=== PATIENT | female | born 1995 | race Caucasian/White ===

== ENCOUNTER 2018-02-17 19:53 | Inpatient (IN) ==
[2018-02-17] MEDS ORDERED: Ondansetron 4 MG/2 ML VIAL IVP PRN (20:40)
[2018-02-17] MEDS ORDERED: Famotidine 20 MG/2 ML VIAL IVP PRN (20:40)
[2018-02-17] MEDS ORDERED: Metoclopramide 10 MG/2 ML VIAL IVP PRN (20:40)
[2018-02-17] MEDS ORDERED: *HR* Nalbuphine 10 MG/ML AMPUL IVP PRN (20:40)
[2018-02-17] MEDS ORDERED: Naloxone 0.4 MG/ML INJ IVP PRN (20:40)
[2018-02-17] MEDS ORDERED: Ringers Solution, Lactated 1,000 ML IVC SCH (20:45)
[2018-02-17 21:02] LABS: Basophils % 0.3 %; Eosinophils # 0.1 K/mcL (0.0-0.6); Eosinophils % 0.9 %; Hematocrit 33.1 % (35.3-44.9); Hemoglobin 11.1 g/dL (11.5-15.4); Immature Granulocytes % 0.5 % (0-4); Lymphocytes # 1.8 K/mcL (0.6-4.6); Lymphocytes % 13.3 %; Mean Corpuscular HGB Conc 33.5 g/dL (31.6-35.5); Mean Corpuscular Hemoglobin 28.1 pg (28.0-33.3); Mean Corpuscular Volume 83.8 fL (83.0-100.0); Mean Platelet Volume 11.6 fL (9.4-12.4); Monocytes # 0.6 K/mcL (0.0-1.3); Monocytes % 4.4 %; Neutrophils # 10.6 K/mcL (1.6-8.9); Platelet Count 163 K/mcL (140-400); Red Blood Count 3.95 M/mcL (3.82-4.97); Red Cell Distribution Width 13.2 % (11.5-14.5); Segmented Neutrophils % 80.6 %
[2018-02-17] MEDS: miSOPROStol 25 MCG TABLET VG PRN (21:13)
[2018-02-17 21:20] LABS: Alanine Aminotransferase 12 Units/L (7-52); Aspartate Amino Transferase 16 Units/L (13-39); BUN/Creatinine Ratio 9 (6-26); Blood Urea Nitrogen 6 mg/dL (6-20); Lactate Dehydrogenase 152 Units/L (140-271); Uric Acid 5.3 mg/dL (2.3-7.6); eGFR For Non-African Americans > 60 (> 60)
[2018-02-17 21:36] LABS: Amphetamine Screen,Urine Negative ng/mL (Cutoff=1000); Barbiturate Screen,Urine Negative ng/mL (Cutoff=200); Benzodiazepines Screen,Urine Negative ng/mL (Cutoff=200); Cannabinoid Screen,Urine Negative ng/mL (Cutoff = 50); Cocaine Screen,Urine Negative ng/mL (Cutoff= 300); Opiate Screen,Urine Negative ng/mL (Cutoff=300); Phencyclidine Screen,Urine Negative ng/mL (Cutoff=25)
--- NOTE | 2018-02-18 02:19 | OB Labor Progress Note ---
Date of Encounter: 02/18/18 Time of Encounter: 02:17 Labor Progress Note - Subjective Subjective: Patient doing well. Patient reports feeling contractions but denies need for pain interventions. Discussed POC with patient. Patient denies any questions or concerns at this time. - Cervix Cervix: FT/thick/HIGH - Heart Tones Heart Tones: 135 bpm moderate variability +15x15 accels no decels noted. Cat. 1 tracing - Buckland Buckland: irregular - Interventions Interventions: SVE - Plan Plan: Continue labor management: Repeat cytotec 25mcg vaginally reevaluate for gudino induction in 4 hours
[2018-02-18] MEDS: miSOPROStol 25 MCG TABLET VG PRN (04:05)
--- NOTE | 2018-02-18 08:01 | OB/GYN History & Physical ---
Date of Encounter: 02/18/18 Time of Encounter: 07:59 History of Present Illness Chief complaint: induction HPI: Ms. Meyer is a 23 year old female 1 who presents today for induction of labor at 40 weeks. This patient has been having difficulty with elevated blood pressures throughout her . She saw maternal- medicine who suggested induction. His blood pressures were mildly elevated 1 admission and they came down nicely. All [facility] labs were normal. She has a due date of February 23. Today she is feeling well. 7 no complaints of any kind. Cervix is 1 thick and high. She has no known drug allergies. Current medications include Zoloft and her vitamins. She is no chronic medical conditions. Surgical history is negative. She has no history of abnormal Pap smears, STDs or pelvic infections. She has no history of abnormal breast findings. Socially she denies tobacco, alcohol, illicit drug use. Family history significant for hypertension and thyroid disease. Past Med Surg Social Fam HX - Past Medical History Medical history: asthma Psychiatric history: anxiety, depression - Past Surgical History Surgical History: non-contributory Additional surgical history: left knee - Social History Smoking Status: Never smoker Smokeless Tobacco Status: No Alcohol use: none Drug use: none - Family History Sister Name: beryl meyer Age: 20 Family Member Ethnicity: Non- Living Status: Still Living Hx Family Cardiac Disorders: No Hx Family Respiratory Disorders: No Hx Family Cancer: No Hx Family GI Disorders: No Hx Family Genitourinary Disorders: No Hx Family Endocrine Disorder: No Hx Family Musculoskeletal Disorders: No Hx Family Neuromuscular Disorders: No Hx Family Neurologic Disorders: Yes Hx Family HEENT Disorders: No Hx Family Autoimmune Disorders: No Hx Family Reproductive Disorders: No Hx Family Psychosocial Disorders: No Hx Family Medical Disorders: No Obstetrical History - Pregnancies : 1 Medications and Allergies Pnv Cmb#21/Iron/Folic Acid [ Complete Caplet] 1 each PO DAILY 02/17/18 [History] Sertraline [Zoloft] 100 mg PO DAILY 02/17/18 [History] Allergy/AdvReac Type Severity Reaction Status Date / Time No Known Allergies Allergy Verified 02/17/18 21:11 Review of System OB All systems PM: reviewed and no additional remarkable complaints except as st ated Exam - Constitutional Constitutional: well developed, well nourished, no acute distress, average body habitus - HEENT HEENT: PERRL - Neck Neck exam: full ROM - Lungs Respiratory exam: CTAB - Cardiovascular Cardiovascular exam: RRR - Abdomen Abdomen: Present: gravid, non tender - Cervix Dilation: 1 Effacement: 0 Station: -3 - Uterus Uterus exam: Present: normal size Results Result Diagrams: 02/17/18 20:43 02/17/18 20:43 Abnormal lab results WBC 13.2 K/mcL (4.3-11.1) H 02/17/18 20:43 Hgb 11.1 g/dL (11.5-15.4) L 02/17/18 20:43 Hct 33.1 % (35.3-44.9) L 02/17/18 20:43 Neutrophils # 10.6 K/mcL (1.6-8.9) H 02/17/18 20:43 All other labs normal. - VTE Reasons for not Prescribing Prophylaxis: Treatment not Indicated - Low risk for VTE
--- NOTE | 2018-02-18 08:29 | Anesthesia Evaluation PreOp ---
Date of Encounter: 02/18/18 Time of Encounter: 08:27 - Past History Planned Operation: YOBANI Cardiac History: HTN ( induced--not taking any anti-hypertensives) Pulmonary History: Denies Any Significant HX OIL INSPECTOR History: Denies Any Significant HX Other Medical History: Denies Any Significant HX Anesthesia History: No Prior Anesthetic Complications : Yes Alcohol Use: none Drug use: none Medications and Allergies Pnv Cmb#21/Iron/Folic Acid [ Complete Caplet] 1 each PO DAILY 02/17/18 [History] Sertraline [Zoloft] 100 mg PO DAILY 02/17/18 [History] Allergy/AdvReac Type Severity Reaction Status Date / Time No Known Allergies Allergy Verified 02/17/18 21:11 - Meds/Allergy Pre-op Review Medications Reviewed: Yes Allergies Reviewed: Yes Beta Blockers on Current Med List: No Anesthesia Results - Labs 02/17/18 20:43 02/17/18 20:43 Anesthesia Exam 136/83, HR 98, RR 16 O2 Sat Height 1.57 m Height 1.57 m Weight 105 kg Weight 105 kg NPO (# of Hours): solids > 8hr Pain Scale: 2 Pain Scale Used: Numeric (1 - 10) - HEENT Pupil (Motor): Pupils equal Mallampati: II Teeth: Normal Oral Opening: Greater than 3 - OIL INSPECTOR LOC: Oriented OIL INSPECTOR Motor: Normal RUE, Normal LUE, Normal RLE, Normal LLE, Normal Face OIL INSPECTOR Sensory: Normal: RUE, LUE, RLE, LLE, Face - Cardiac Rhythm: Regular Murmur: None - Pulmonary Breath Sounds: bilateral Clear Respiratory Effort: Symmetrical Anesthesia Assess/Plan ASA Score: 2 Modified [place] Scale for Level of Consciousness: Cooperative, oriented, and t ranquil Anesthetic Plan: Regional Autologous Blood: No Monitoring Plan: Standard Monitors Recovery Plan: Other
[2018-02-18] MEDS ORDERED: Bupivacaine-MPF 0.25% 10 ML VIAL EP ONE (08:30)
[2018-02-18] MEDS ORDERED: miSOPROStol 25 MCG TABLET VG SCH (08:30)
[2018-02-18] MEDS ORDERED: Epidural Premix (fent/bupiv) 110 ML EP SCH (08:30)
[2018-02-18] MEDS ORDERED: *HR* FentaNYL (PF) 100 MCG/2 ML VIAL EP ONE (08:30)
[2018-02-18] MEDS ORDERED: *HR* FentaNYL (PF) 100 MCG/2 ML VIAL ONE (08:33)
[2018-02-18] MEDS ORDERED: Lidocaine -MPF 1% 5 ML AMPUL ONE ×2 (08:33→08:36)
[2018-02-18] MEDS ORDERED: Bupivacaine-MPF 0.25% 10 ML VIAL ONE (08:36)
--- NOTE | 2018-02-18 13:19 | OB/GYN Progress Note ---
Date of Encounter: 02/18/18 Time of Encounter: 13:17 - Assessment and Plan (1) 39 weeks gestation of Current Visit: Yes Status: Acute (2) induced hypertension Current Visit: Yes Status: Acute Qualifiers: Qualified Code(s): O13.9 - Gestational [-induced] hypertension without significant proteinuria, unspecified trimester Subjective - Subjective Principal diagnosis: Casillas catheter placed Interval history: Barbara was checked. Sterile vaginal exam and -3. heart rate 130s to 140s with accelerations. Contractions became more regular. 60 mL Casillas catheter placed without difficulty today. Patient tolerated procedure well. Discussed epidural. Objective - Vital Signs Vital Signs: Intake and Output 02/17/18 02/18/18 02/18/18 23:59 07:59 15:59 Other: Weight 105 kg - Exam FHR: category 1 Abdomen: Present: normal appearance, soft, gravid Uterus: Present: normal Cervical dilation: 11 Cervix effacement: 50 station: -3 - Labs Labs: Abnormal lab results WBC 13.2 K/mcL (4.3-11.1) H 02/17/18 20:43 Hgb 11.1 g/dL (11.5-15.4) L 02/17/18 20:43 Hct 33.1 % (35.3-44.9) L 02/17/18 20:43 Neutrophils # 10.6 K/mcL (1.6-8.9) H 02/17/18 20:43
--- NOTE | 2018-02-18 17:25 | Anesthesia Procedures ---
Date of Encounter: 02/18/18 Time of Encounter: 16:47 Procedures: Anesthesia - Epidural/Spinal Patient ID/Chart reviewed: Yes Patient examined: Yes OB Eval: Gestational age: 40 weeks 2 days OB Eval: : 1 OB Eval: Hx Para: 0 OB Eval: Dilated at (cm): 6 OB Eval: Contractions: Non-stressed pattern Consent Obtained: Yes Supplemental Oxygen: None/Room Air Site Prep: Aseptic Technique, Sterile prep and drape, Povidone-Iodine 1% Patient position: upright Local Anesthetic: Lidocaine 1% Amount of Local Anesthetic used: 3 Touhy Needle Gauge: 18 Touhy Needle Depth (cm): 7 Catheter Depth at Skin (cm): 12 Test Dose (1.5% Lido + Epi): Volume given (mls): 5 (given in 2 equally divided doses over a period of 5 min) Test Dose Result: Positive (upon catheter advancement, clear fluid noted to be backing up into catheter. Concern for intrathecal placement of catheter so test dose administered very cautiously; patient reported complete pain relief from test dose alone so catheter will be managed as intrathecal) Loading Dose: 0.25% Marcaine (mls): 1 Loading Dose: Fentanyl (mcg): 5 Loading Dose Administered: Thru Catheter Infusion Med: 0.125% Bupivacaine w/ 2 mcg/ml Fentanyl Infusion Rate (mls/hr): 0 (1.6mL/hr) Catheter Secured in Place: Tegaderm, Tape Interspace Used: L3-L4 Loss of Resistance (GUILLERMO): Yes Blood: No CSF: Yes (clear fluid backing up through end of catheter) Paresthesia: Yes (transient LLE w/ advancement of catheter) Procedure: successful on 1st attempt; VSS Vitals + FHT's: please see Breonna JOSHUA's electronic records for VS entry
[2018-02-18] MEDS ORDERED: Oxytocin 20 units/ LR 1000 mL 20 UNIT/1,000 ML BAG IVC SCH (18:15)
--- NOTE | 2018-02-18 19:13 | Event Note ---
Date of Encounter: 02/18/18 Time of Encounter: 17:50 Artificial rupture membranes performed. Vaginal exam cervix is 8 cm, 90% effaced and -2 station contractions irregular. We will begin Pitocin. Category 1 tracing.
--- NOTE | 2018-02-18 19:52 | Anesthesia Progress Note ---
Date of Encounter: 02/18/18 Time of Encounter: 19:49 Anesthesia Note - Note Note: Called to patient bedside to evaluate breakthrough labor pain. Patient describes 10/10 pain "all over" with contractions. 2mL 0.125% bupivicaine + 10mcg fentanyl given--no relief. 2mL 0.125% bupi + 10mcg fentanyl given--no relief. 3mL 0.125% bupi + 15mcg fentanyl given--moderate relief; 3mL 0.125% bupi + 15mcg fentanyl given--patient reports significant improvement in pain. Determined that catheter is in epidural space so infusion rate increased to 12mL/hr w/ demand bolus of 4mL q20min PRN. VSS 02/18/18 19:49
--- NOTE | 2018-02-18 21:52 | Anesthesia Progress Note ---
Date of Encounter: 02/18/18 Time of Encounter: 21:49 Anesthesia Note - Note Note: Called to patient's bedside to evaluate breakthrough labor pain; patient describes pain "all over" with contractions; 8mL of 0.125% bupi + 45mcg fentanyl administered via epidural catheter. Patient reports significant improvement in pain score. Infusion increased to 16mL/hr w/ demand bolus of 6mL q30min PRN. VSS 02/18/18 21:49
[2018-02-19] MEDS ORDERED: Chloroprocaine/PF 20 ML VIAL INFILT ONE (07:15)
[2018-02-19] MEDS ORDERED: Water for inj. (sterile) 10 ML IV ONE ×2 (07:16→07:26)
[2018-02-19] MEDS ORDERED: EPHEDrine 50 MG/ML VIAL ONE (07:16)
[2018-02-19] MEDS ORDERED: Ondansetron 4 MG/2 ML VIAL ONE (07:17)
[2018-02-19] MEDS ORDERED: ceFAZolin 2,000 MG in Water for inj. (sterile) 20 ML 20 ML IVP ONE (07:24)
[2018-02-19] MEDS ORDERED: *HR* Morphine Sulfate/PF 10 MG/10 ML AMPUL ONE (07:25)
[2018-02-19] MEDS ORDERED: Azithromycin 1,000 MG in D5% in Water 250 ML IVPB ONE (07:25)
--- NOTE | 2018-02-19 07:28 | OB/GYN Progress Note ---
Date of Encounter: 02/19/18 Time of Encounter: 07:26 - Assessment and Plan (1) 39 weeks gestation of Current Visit: Yes Status: Acute (2) induced hypertension Current Visit: Yes Status: Acute Qualifiers: Qualified Code(s): O13.9 - Gestational [-induced] hypertension without significant proteinuria, unspecified trimester (3) Arrest of dilation, delivered, current hospitalization Current Visit: Yes Status: Acute (4) Failure of descent in labor, delivered, current hospitalization Current Visit: Yes Status: Acute (5) delivery delivered Current Visit: Yes Status: Acute Subjective - Subjective Principal diagnosis: labor Interval history: Pt has made no cervical mover helper past 10 hours. Infant still at -2 station. Patient 9 cm. Patient now feeling pain again and desiring section. Surgery discussed with patient and family. They understand completely. She does wish to proceed. Objective - Exam FHR: category 2 Abdomen: Present: normal appearance Uterus: Present: normal, firm Cervical dilation: 9 Cervix effacement: 80 station: -2 - Labs Labs: Abnormal lab results WBC 13.2 K/mcL (4.3-11.1) H 02/17/18 20:43 Hgb 11.1 g/dL (11.5-15.4) L 02/17/18 20:43 Hct 33.1 % (35.3-44.9) L 02/17/18 20:43 Neutrophils # 10.6 K/mcL (1.6-8.9) H 02/17/18 20:43
[2018-02-19] MEDS ORDERED: *HR* ROPIVACAINE 1% PF 100 MG/10 ML VIAL ONE (07:54)
[2018-02-19] MEDS ORDERED: Acetaminophen IV 1,000 MG/100 ML INFUS..BTL IVPB ONE ×2 (08:04→11:50)
[2018-02-19] MEDS ORDERED: Ondansetron 4 MG/2 ML VIAL IVP ONE (08:04)
[2018-02-19] MEDS ORDERED: *HR* HYDROmorphone (PF) 1 MG/ML SYRINGE IVP PRN (08:04)
[2018-02-19] MEDS ORDERED: *HR* Promethazine 25 MG/ML VIAL IVP PRN (08:04)
[2018-02-19] MEDS ORDERED: Naloxone 0.4 MG/ML INJ IVP PRN (08:04)
[2018-02-19] MEDS ORDERED: Albuterol 2.5 MG/3 ML NEBULIZER IH ONE (08:04)
[2018-02-19] MEDS ORDERED: Ringers Solution, Lactated 1,000 ML IVC SCH (08:15)
--- NOTE | 2018-02-19 08:44 | OB/GYN Procedure Note ---
Section - Date of procedure: 02/19/18 Preop diagnosis: arrest of dilation Post-op diagnosis: same Procedure: primary low transverse Surgeon: Bean Vazquez Blood Loss: 500 Was there an medical records assistant present: Yes Breast Buffer: Rashida Luong Tool Shaper Setup Operator: David Paredes Anesthesia Type: Epidural section complications: none Disposition: Post floor Specimens: Placenta - (s) A Delivery Date: 02/19/18 Delivery Time: 08:14 Presentation: vertex Position: OP Route of delivery: other Gender: Male Viability: Viable Pounds: 8 Ounces: 4 Gram Weight: 3.735 kg at 1 minute: 8 at 5 minutes: 9 Placenta: uterine exploration
--- NOTE | 2018-02-19 08:49 | OB/GYN Procedure Note ---
Section - Date of procedure: 02/19/18 Preop diagnosis: arrest of dilation Post-op diagnosis: same Procedure: primary low transverse Surgeon: Bean Vazquez Blood Loss: 500 Was there an clinical physician assistant present: Yes Aviation Safety Inspector: Rashida Luong Chemical Preparer: David Paredes Anesthesia Type: Epidural section complications: none Specimens: Placenta - (s) Infant A Infant Delivery Date: 02/19/18 Delivery Time: 08:14 Presentation: vertex Position: OP Route of delivery: other Gender: Male Pounds: 8 Ounces: 4 Gram Weight: 3.735 kg at 1 minute: 8 at 5 minutes: 9 Placenta: uterine exploration - Narrative Narrative: Patient had labored all evening. Patient had arrest of dilation and failure to descend. Patient still 9 cm and at a -2 to -3 station after 8 hours. Category 1 tracing noted. The began having more difficulty with patient's blood pressure. Because of this we felt it was necessary to proceed with a serum section. Patient did desire to proceed with this. The procedure was discussed in detail. She understood completely consent was obtained. Patient was then taken back to the operating room with an IV in place. Her epidural was bolused. She was then prepped and draped in the usual sterile fashion. Once we noted adequate analgesia a Pfannenstiel incision was made, and carried sharply through the subcutaneous taste and fatty tissue to until the fascial layers reached. The fascia was then nicked in the midline and incised bilaterally with Cesar scissors. It was then dissected vertically for adequate exposure. Rectus abdominis muscles creatures and separate the midline. The peritoneum was sharply entered. A bladder blade was placed at the inferior margin of the incision. The bladder flap was then developed without difficulty. The bladder blade was placed over the bladder flap, and a low transverse incision was then made in the lower uterine segment. Fluid was noted be clear. The 's head was then delivered without difficulty in occiput posterior presentation. Infant was floating in the uterus. There was no descensus of the baby. The rest of the infant was then delivered easily. cried immediately upon delivery. Cord was clamped cut. The infant was then passed to nursing in attendance. Cord bloods obtained. Placenta was delivered via uterine massage and lavage. The uterus is delivered. Uterine lavage performed of the incision was closed the Vicryl suture in a running locking fashion. One [id number] was placed for final hemostasis. The uterus was then replaced the pelvic cavity pelvic cavity was rinsed thoroughly with sterile water 2. C no bleeding the procedure was terminated sponge needle [place] counts correct 2. The fascia was closed the Vicryl suture in a running nonlocking fashion. The suprafascial region was rinsed thoroughly sterile water 2 all bleeders cauterized. The skin was closed scarlet. Patient tolerated procedure well. Estimated blood loss 500 mL. Findings male infant 8 lbs. 4 oz. with Apgars 8 at 1 minute, 9 at 5 minutes.
[2018-02-19] MEDS ORDERED: miSOPROStol 100 MCG TABLET PO ONE (10:38)
[2018-02-19] MEDS ORDERED: Methylergonovine 0.2 MG/ML AMPUL IM ONE (10:38)
[2018-02-19] MEDS ORDERED: *HR* Morphine 2 MG/ML SYRINGE IVP PRN ×2 (11:08→11:50)
--- NOTE | 2018-02-19 11:08 | Anesthesia Evaluation Post Op ---
Date of Encounter: 02/19/18 Time of Encounter: 11:07 - Lungs Lungs: Clear Ascult./Percussion - Airway Airway: Non-obstructed - Cardiovascular Regular Rate, Baseline Rhythm - Mental Status Mental Status: Alert & Oriented, Answers Appropriately - Pain Pain Scale: 3 Pain Scale used: Numeric (1 - 10) - Nausea Vomiting Nausea Vomiting: Not Present - Hydration Hydration: Ice chips, Casillas catheter - Discharge PostOp Status: Transfer Patient to floor
[2018-02-19] MEDS ORDERED: Sennosides 8.6 MG TABLET PO PRN (11:15)
[2018-02-19] MEDS ORDERED: Metoclopramide 10 MG/2 ML VIAL IVP PRN (11:15)
[2018-02-19] MEDS ORDERED: Ondansetron 4 MG/2 ML VIAL IVP PRN (11:15)
[2018-02-19] MEDS ORDERED: Rho Immune Globulin 1,500 UNIT SYRINGE IM ONE (11:15)
[2018-02-19] MEDS ORDERED: Simethicone 80 MG TAB.CHEW PO PRN (11:15)
[2018-02-19] MEDS ORDERED: CeFAZolin Premix DUPLEX 2,000 MG/50 ML BAG IVPB SCH (16:00)
[2018-02-19] MEDS: Oxytocin 20 units/ LR 1000 mL 20 UNIT/1,000 ML BAG IVC SCH (17:04)
[2018-02-19] MEDS: *HR* OxyCODONE/APAP 5/325 TABLET PO PRN (18:45)
[2018-02-19] MEDS: Ibuprofen 600 MG TABLET PO PRN (21:06)
[2018-02-20] MEDS: Oxytocin 20 units/ LR 1000 mL 20 UNIT/1,000 ML BAG IVC SCH ×2 (01:12→09:34)
[2018-02-20] MEDS: Ibuprofen 600 MG TABLET PO PRN (04:14)
[2018-02-20 07:35] LABS: Basophils % 0.2 %; Eosinophils # 0.2 K/mcL (0.0-0.6); Hematocrit 24.3 % (35.3-44.9); Immature Granulocytes % 0.6 % (0-4); Lymphocytes # 1.4 K/mcL (0.6-4.6); Lymphocytes % 8.7 %; Mean Corpuscular HGB Conc 32.9 g/dL (31.6-35.5); Mean Corpuscular Hemoglobin 28.1 pg (28.0-33.3); Mean Corpuscular Volume 85.3 fL (83.0-100.0); Mean Platelet Volume 10.6 fL (9.4-12.4); Monocytes # 0.9 K/mcL (0.0-1.3); Monocytes % 5.8 %; Platelet Count 123 K/mcL (140-400); Red Blood Count 2.85 M/mcL (3.82-4.97); Red Cell Distribution Width 13.7 % (11.5-14.5); Segmented Neutrophils % 83.7 %
[2018-02-20] MEDS: Prenatal Vit/FA 1 EACH TABLET PO SCH (08:18)
--- NOTE | 2018-02-20 08:58 | OB/GYN Progress Note ---
Date of Encounter: 02/20/18 Time of Encounter: 08:51 - Assessment and Plan (1) S/P section Current Visit: Yes Status: Acute continue routine post-op / care anticipate discharge home tomorrow (2) Anemia complicating the puerperium Current Visit: Yes Status: Acute VSS increase ferrous sulfate to BID Subjective - Subjective Principal diagnosis: Primary C/S Interval history: S/P primary C/S x 1 VSS Pain well controlled lochia light and without clots voiding without difficulty tolerating regular diet; passing flatus breast feeding discharge home tomorrow Patient reports: appetite normal, voiding normally, pain well controlled, ambulating normally [place]: doing well, nursing well Objective - Vital Signs Latest vital signs: Vital Signs Temp Pulse Resp BP Pulse Ox 02/20/18 04:00 97.8 F 93 18 122/81 97 02/20/18 00:15 98.7 F 99 20 117/80 95 02/19/18 19:30 98.3 F 116 14 116/68 98 02/19/18 16:22 98.4 F 101 20 114/70 97 02/19/18 14:00 98.2 F 105 20 104/62 96 02/19/18 13:00 981 F H 139 24 104/67 95 02/19/18 12:00 97.8 F 109 20 115/77 95 02/19/18 11:30 99.0 F 90 16 112/76 97 02/19/18 11:00 98.9 F 100 20 107/22 97 Intake and Output 02/19/18 02/20/18 02/20/18 23:59 07:59 15:59 Intake Total 600 / 600 2000 / 2000 Output Total 1000 / 1000 1100 / 1100 Balance -400 / -400 900 / 900 Intake: IV Fluids 1000 / 1000 Pitocin 20 unit In 1,000 ml @ 1000 / 1000 125 mls/hr IVC .Q8H ELBERT Rx#: [id number] Oral 600 / 600 1000 / 1000 Output: Catheter 1000 / 1000 1100 / 1100 Other: Meal Dinner Percent of Meal Consumed 80% Weight 102.512 kg Patient Weight 02/20/18 23:59 Weight 102.512 kg - Exam Lungs: bilateral: normal Chest: Normal S1, Normal S2 Extremities: Present: normal Abdomen: Present: normal appearance, soft, gravid Incision: Present: normal, dry, intact Uterus: Present: normal, firm Fundal Height: 0 (@u) - Labs Labs: Laboratory Results - last 24 hr 02/19/18 02/20/18 08:52 07:24 WBC 15.6 H RBC 2.85 L Hgb 8.0 L D Hct 24.3 L MCV 85.3 MCH 28.1 MCHC 32.9 RDW 13.7 Plt Count 123 L MPV 10.6 Immature Gran % 0.6 Seg Neutrophils % 83.7 Lymphocytes % 8.7 Monocytes % 5.8 Eosinophils % 1.0 Basophils % 0.2 Neutrophils # 13.0 H Lymphocytes # 1.4 Monocytes # 0.9 Eosinophils # 0.2 Basophils # 0.0 Screen NEGATIVE Baby's Blood Type A RH POSITIVE Mother's Blood Type A RH NEGATIVE Rhogam Indicated YES Rhogam Req for Mother 1
[2018-02-20] MEDS: *HR* OxyCODONE/APAP 5/325 TABLET PO PRN ×3 (10:44→21:45)
[2018-02-21] MEDS: *HR* OxyCODONE/APAP 5/325 TABLET PO PRN ×2 (04:46→09:18)
[2018-02-21] MEDS: Prenatal Vit/FA 1 EACH TABLET PO SCH (08:02)
--- NOTE | 2018-02-21 08:59 | Discharge Summary ---
Date of Encounter: 02/21/18 Time of Encounter: 09:00 - Discharge Diagnosis (1) Anemia complicating the puerperium Priority: Secondary Status: Acute (2) delivery delivered Priority: Primary Status: Acute Comments: Pt meeting post-op milestones. Tachycardia noted to 120's. Hgb stable at 8. Pt reports mild PRINCE this am but denies any other complaints including vision changes, dizziness, chest pain, SOB, leg pain. She reports mild incisional pain that improves with percocet. Plan of care discussed with Dr. Anaya who has reviewed her chart including vital signs and lab results. Per Dr. Anaya tachycardia is most likely due to anemia. Plan for discharge home with precautions. (3) induced hypertension Priority: Secondary Status: Acute Comments: BP stable. Pt reports mild headache earlier this am. No other sx preeclampsia. PIH labs normal this am. Qualifiers: Trimester: unspecified trimester Qualified Code(s): O13.9 - Gestational [-induced] hypertension without significant proteinuria, unspecified trimester - Discharge Medications Prescriptions: OxyCODONE/APAP 5/325 [Percocet 5/325 MG] 1 each PO Q4HR PRN 5 Days #30 tablet PRN Reason: Moderate pain 4-6 Ibuprofen [Motrin] 600 mg PO Q6HR PRN #30 tablet PRN Reason: Cramping Docusate [Colace] 100 mg PO BID #60 capsule Ferrous Sulfate 325 mg PO BIDWM #60 tablet Home Medications: Pnv Cmb#21/Iron/Folic Acid [ Complete Caplet] 1 each PO DAILY 02/17/18 [History] Sertraline [Zoloft] 100 mg PO DAILY 02/17/18 [History] Docusate [Colace] 100 mg PO BID #60 capsule 02/21/18 [Rx] Ferrous Sulfate 325 mg PO BIDWM #60 tablet 02/21/18 [Rx] Ibuprofen [Motrin] 600 mg PO Q6HR PRN #30 tablet 02/21/18 [Rx] OxyCODONE/APAP 5/325 [Percocet 5/325 MG] 1 each PO Q4HR PRN 5 Days #30 tablet 02/21/18 [Rx] Simethicone [Gas-X] 80 mg PO TID PRN tab.chew 02/21/18 [Rx] Allergies/Adverse Reactions: Allergy/AdvReac Type Severity Reaction Status Date / Time No Known Allergies Allergy Verified 02/17/18 21:11 Data Procedures and tests throughout hospitalization: Laboratory Tests 02/17/18 02/17/18 02/17/18 20:40 20:43 20:43 WBC 13.2 H RBC 3.95 Hgb 11.1 L Hct 33.1 L MCV 83.8 MCH 28.1 MCHC 33.5 RDW 13.2 Plt Count 163 MPV 11.6 Immature Gran % 0.5 Seg Neutrophils % 80.6 Lymphocytes % 13.3 Monocytes % 4.4 Eosinophils % 0.9 Basophils % 0.3 Neutrophils # 10.6 H Lymphocytes # 1.8 Monocytes # 0.6 Eosinophils # 0.1 Basophils # 0.0 BUN 6 Creatinine 0.64 Est GFR ( Amer) > 60 Est GFR (Non-Af Amer) > 60 BUN/Creatinine Ratio 9 Uric Acid 5.3 AST 16 ALT 12 Lactate Dehydrogenase 152 Urine Opiates Screen Negative Ur Barbiturates Screen Negative Ur Phencyclidine Scrn Negative Ur Amphetamines Screen Negative U Benzodiazepines Scrn Negative Urine Cocaine Screen Negative U Marijuana (THC) Screen Negative Ur Drug Screen Interp See Below Screen Baby's Blood Type Mother's Blood Type Rhogam Indicated Rhogam Req for Mother 02/19/18 02/20/18 08:52 07:24 WBC 15.6 H RBC 2.85 L Hgb 8.0 L D Hct 24.3 L MCV 85.3 MCH 28.1 MCHC 32.9 RDW 13.7 Plt Count 123 L MPV 10.6 Immature Gran % 0.6 Seg Neutrophils % 83.7 Lymphocytes % 8.7 Monocytes % 5.8 Eosinophils % 1.0 Basophils % 0.2 Neutrophils # 13.0 H Lymphocytes # 1.4 Monocytes # 0.9 Eosinophils # 0.2 Basophils # 0.0 BUN Creatinine Est GFR ( Amer) Est GFR (Non-Af Amer) BUN/Creatinine Ratio Uric Acid AST ALT Lactate Dehydrogenase Urine Opiates Screen Ur Barbiturates Screen Ur Phencyclidine Scrn Ur Amphetamines Screen U Benzodiazepines Scrn Urine Cocaine Screen U Marijuana (THC) Screen Ur Drug Screen Interp Screen NEGATIVE Baby's Blood Type A RH POSITIVE Mother's Blood Type A RH NEGATIVE Rhogam Indicated YES Rhogam Req for Mother 1 Date of admission: 02/17/18 19:53 Primary care physician: PCP NONE Discharging clinician: Christie RitterFill[place]) Anticipated date of discharge: 02/21/18 - Patient Status Disposition: Home, Self-Care Condition: Good Functional capacity at discharge: independent ambulation Overall status at discharge: patient is progressing back to baseline - Discharge Instructions Follow Up With: NONE,PCP [Primary Care Provider] - - Diet and Activity Activity: increase activity as tolerated Diet: regular diet Hospital Course Reason for admission: induction of labor Delivery: section Episiotomy: none Laceration: none Other procedures: none complications: none Discharge diagnosis: IUP at term delivered [place] baby: male Hospital course: - Date of procedure: 02/19/18 Preop diagnosis: arrest of dilation Post-op diagnosis: same Procedure: primary low transverse Surgeon: Bean Vazquez Blood Loss: 500 Was there an family assistant present: Yes Educational Sign Language Interpreter: Rashida Luong Payroll Analyst: David Paredes Anesthesia Type: Epidural section complications: none Specimens: Placenta - (s) Infant A Delivery Date: 02/19/18 Delivery Time: 08:14 Presentation: vertex Position: OP Route of delivery: other Gender: Male Pounds: 8 Ounces: 4 Gram Weight: 3.735 kg at 1 minute: 8 at 5 minutes: 9 Placenta: uterine exploration Time Attestation: Total time spent providing and/or coordinating discharge services: Time Spent: Less than 30 minutes - VTE Reasons for not Prescribing Prophylaxis: Treatment not Indicated - Low risk for VTE Documentation of Mechanical Device: Intermittent pneumatic compression device Exam - Constitutional Vitals: Temp Pulse Resp BP Pulse Ox 98 F 114 16 130/91 98 02/21/18 07:56 02/21/18 07:56 02/21/18 07:56 02/21/18 07:56 02/21/18 07:56 General appearance IM: A&O X 3 - Respiratory Respiratory exam: Present: CTAB - Cardiovascular Cardiovascular exam IM: Present: RRR - GI/Abdominal GI/Abdominal exam IM: soft, no peritoneal signs Incision: dry (scarlet intact), intact - Uterine Tone: Firm - Extremities Exam Extremities exam IM: Present: pedal edema (1+ bilaterally, no erythema or warmth) - Neurological Exam Neurological exam: normal gait, oriented X3 - Psychiatric Additional comments: reports good mood
[2018-02-21 12:19] LABS: Alanine Aminotransferase 10 Units/L (7-52); Aspartate Amino Transferase 13 Units/L (13-39); BUN/Creatinine Ratio 9 (6-26); Blood Urea Nitrogen 7 mg/dL (6-20); Lactate Dehydrogenase 156 Units/L (140-271); Uric Acid 5.8 mg/dL (2.3-7.6); eGFR For Non-African Americans > 60 (> 60)
[2018-02-21 12:24] LABS: Basophils % 0.2 %; Eosinophils # 0.2 K/mcL (0.0-0.6); Eosinophils % 1.6 %; Hematocrit 24.8 % (35.3-44.9); Immature Granulocytes % 1.2 % (0-4); Lymphocytes # 1.4 K/mcL (0.6-4.6); Lymphocytes % 9.7 %; Mean Corpuscular HGB Conc 32.3 g/dL (31.6-35.5); Mean Corpuscular Volume 86.7 fL (83.0-100.0); Mean Platelet Volume 11.2 fL (9.4-12.4); Monocytes # 0.7 K/mcL (0.0-1.3); Monocytes % 5.3 %; Neutrophils # 11.6 K/mcL (1.6-8.9); Platelet Count 171 K/mcL (140-400); Red Blood Count 2.86 M/mcL (3.82-4.97); Red Cell Distribution Width 14.2 % (11.5-14.5)
[2018-02-21 12:53] VITALS: BP 142/91
== END 2018-02-21 13:22 | disposition home or self-care (01) | DRG 788 ==
LOC: 1NENULAB 19:53 → 1NENUOBS 02-19 11:13
PROVIDERS: ADMIT Obstetrics & Gynecology; ATTEND Obstetrics & Gynecology

== ENCOUNTER 2021-12-22 05:45 | Inpatient (IN) ==
[2021-12-22] MEDS ORDERED: Azithromycin 500 MG in 0.9 % Sodium Chloride 250 ML IVPB PRN (06:39)
[2021-12-22] MEDS ORDERED: Famotidine 20 MG/2 ML VIAL IVP ONE ×2 (06:39→11:30)
[2021-12-22] MEDS ORDERED: Ringers Solution, Lactated 1,000 ML IVC ONE (06:39)
[2021-12-22] MEDS ORDERED: CeFAZolin 2,000 MG/120 ML BAG IVPB ONE ×2 (06:39→12:00)
[2021-12-22] MEDS ORDERED: Metoclopramide 10 MG/2 ML VIAL IVP ONE ×2 (06:39→11:30)
[2021-12-22] MEDS ORDERED: Ringers Solution, Lactated 1,000 ML ONE ×2 (06:43→12:24)
[2021-12-22] MEDS ORDERED: Ringers Solution, Lactated 1,000 ML IVC SCH ×2 (06:45→15:40)
[2021-12-22] MEDS ORDERED: *HR* Morphine Sulfate/PF 10 MG/10 ML AMPUL ONE (07:02)
[2021-12-22] MEDS ORDERED: EPHEDrine 50 MG/ML VIAL ONE (07:02)
[2021-12-22] MEDS ORDERED: *HR* FentaNYL (PF) 100 MCG/2 ML VIAL ONE (07:02)
[2021-12-22 07:04] LABS: Basophils % 0.4 %; Eosinophils # 0.2 K/mcL (0.0-0.6); Eosinophils % 1.5 %; Hematocrit 36.9 % (35.3-44.9); Hemoglobin 12.5 g/dL (11.5-15.4); Immature Granulocytes % 0.6 % (0-4); Lymphocytes # 1.9 K/mcL (0.6-4.6); Lymphocytes % 17.6 %; Mean Corpuscular HGB Conc 33.9 g/dL (31.6-35.5); Mean Corpuscular Hemoglobin 30.6 pg (28.0-33.3); Mean Corpuscular Volume 90.2 fL (83.0-100.0); Mean Platelet Volume 10.9 fL (9.4-12.4); Monocytes # 0.7 K/mcL (0.0-1.3); Monocytes % 6.6 %; Platelet Count 171 K/mcL (140-400); Red Blood Count 4.09 M/mcL (3.82-4.97); Red Cell Distribution Width 12.9 % (11.5-14.5); Segmented Neutrophils % 73.3 %; White Blood Count 10.9 K/mcL (4.3-11.1)
[2021-12-22] MEDS ORDERED: Acetaminophen IV 1,000 MG/100 ML BAG IVPB ONE (07:06)
[2021-12-22] MEDS ORDERED: Ketorolac 30 MG/ML VIAL ONE (07:09)
[2021-12-22] MEDS ORDERED: Naloxone 0.4 MG/ML INJ IVP PRN (07:47)
[2021-12-22] MEDS ORDERED: Promethazine 6.25 MG in Water for inj. (sterile) 20 ML IVPB PRN (07:47)
[2021-12-22] MEDS ORDERED: *HR* FentaNYL (PF) 100 MCG/2 ML VIAL IVP PRN ×2 (07:47→08:25)
[2021-12-22 07:49] LABS: Amphetamine Screen,Urine Negative ng/mL (Cutoff=1000); Barbiturate Screen,Urine Negative ng/mL (Cutoff=200); Benzodiazepines Screen,Urine Positive ng/mL (Cutoff=200); Cannabinoid Screen,Urine Negative ng/mL (Cutoff = 50); Cocaine Screen,Urine Negative ng/mL (Cutoff= 300); Opiate Screen,Urine Negative ng/mL (Cutoff=300); Phencyclidine Screen,Urine Negative ng/mL (Cutoff=25)
[2021-12-22] MEDS ORDERED: *HR* Nalbuphine 10 MG/ML AMPUL IV PRN (07:49)
[2021-12-22] MEDS ORDERED: Metoclopramide 10 MG/2 ML VIAL IVP PRN (15:40)
[2021-12-22] MEDS ORDERED: OXYTOCIN/RINGERS LACTATE 10 UNIT/166.6 ML BAG IVC ONE (15:40)
[2021-12-22] MEDS ORDERED: Rho Immune Globulin 1,500 UNIT SYRINGE IM ONE (15:40)
[2021-12-22] MEDS ORDERED: Simethicone 80 MG TAB.CHEW PO PRN ×2 (15:40)
[2021-12-22] MEDS ORDERED: Ondansetron 4 MG/2 ML VIAL IVP PRN (15:40)
[2021-12-22] MEDS: Acetaminophen 325 MG TABLET PO SCH (17:56)
[2021-12-22] MEDS: Ibuprofen 600 MG TABLET PO SCH (17:56)
[2021-12-22] MEDS: *HR* Enoxaparin 60 MG/0.6 ML SYRINGE SQ SCH (21:51)
[2021-12-22] MEDS: *HR* OxyCODONE Immed Rel 5 MG TABLET PO PRN (23:16)
[2021-12-23] MEDS: Ibuprofen 600 MG TABLET PO SCH ×5 (03:45→20:30)
[2021-12-23] MEDS: Acetaminophen 325 MG TABLET PO SCH ×5 (03:45→20:29)
[2021-12-23 05:20] LABS: Basophils # 0.1 K/mcL (0.0-0.2); Basophils % 0.4 %; Eosinophils # 0.1 K/mcL (0.0-0.6); Eosinophils % 0.6 %; Hematocrit 28.3 % (35.3-44.9); Immature Granulocytes % 0.6 % (0-4); Lymphocytes # 2.2 K/mcL (0.6-4.6); Lymphocytes % 15.4 %; Mean Corpuscular HGB Conc 33.6 g/dL (31.6-35.5); Mean Corpuscular Hemoglobin 30.4 pg (28.0-33.3); Mean Corpuscular Volume 90.4 fL (83.0-100.0); Mean Platelet Volume 10.9 fL (9.4-12.4); Monocytes % 7.3 %; Neutrophils # 10.7 K/mcL (1.6-8.9); Platelet Count 169 K/mcL (140-400); Red Blood Count 3.13 M/mcL (3.82-4.97); Segmented Neutrophils % 75.7 %; White Blood Count 14.1 K/mcL (4.3-11.1)
[2021-12-23 05:21] LABS: Hemoglobin 9.5 g/dL (11.5-15.4)
[2021-12-23] MEDS: *HR* Enoxaparin 60 MG/0.6 ML SYRINGE SQ SCH ×2 (08:40→20:30)
[2021-12-23] MEDS: *HR* OxyCODONE Immed Rel 5 MG TABLET PO PRN ×2 (08:42→16:09)
[2021-12-23] MEDS: Prenatal Vit/FA 1 EACH TABLET PO SCH (08:42)
[2021-12-23] MEDS ORDERED: NON-FORMULARY MEDICATION 1 EACH EACH (Pnv Cmb#21/Iron/Folic Acid [Prenatal Complete Caplet PO SCH (09:00)
[2021-12-23] MEDS ORDERED: Rho Immune Globulin 1,500 UNIT SYRINGE IM ONE (15:00)
[2021-12-24] MEDS: *HR* OxyCODONE Immed Rel 5 MG TABLET PO PRN (02:26)
[2021-12-24 07:05] VITALS: BP 100/59; PULSE 84; TEMP 98.2; O2SAT 97
[2021-12-24] MEDS: Acetaminophen 325 MG TABLET PO SCH (09:30)
[2021-12-24] MEDS: *HR* Enoxaparin 60 MG/0.6 ML SYRINGE SQ SCH (09:31)
[2021-12-24] MEDS: Prenatal Vit/FA 1 EACH TABLET PO SCH (09:31)
[2021-12-24] MEDS: Ibuprofen 600 MG TABLET PO SCH (09:31)
== END 2021-12-24 13:00 | disposition home or self-care (01) | DRG 788 ==
LOC: 1NENULAB 05:50 → 1NENUOBS 15:22
PROVIDERS: ADMIT Student in an Organized Health Care Education/Training Program; ATTEND Student in an Organized Health Care Education/Training Program